=== PATIENT | male | born 1945 | race Caucasian/White ===

== ENCOUNTER 2022-05-17 07:34 | Emergency (ER) | payer OTHER, MEDICARE, SELFPAY ==
[2022-05-17 07:38] VITALS: BP 143/81; PULSE 98; RESP 15; TEMP 36.2; O2SAT 98; BMI 25.1
[2022-05-17] MEDS: DOCUSATE SODIUM/BENZOCAINE 5 ML ENEMA PR (09:07)
--- NOTE | 2022-05-17 09:44 | ED.ABDPAIN ---
HPI - Abdominal Pain General Date Seen: 05/17/22 Chief Complaint: Constipation Stated Complaint: constipation Time Seen by Provider: 05/17/22 08:38 Source: patient Mode of arrival: ambulatory Limitations: no limitations History of Present Illness HPI narrative: Patient is a 68-year-old gentleman, who presents here with his with a history of constipation for the last 5 days, he has been able have a bowel movement, but is passing gas, he has had no nausea vomiting but his appetite is diminished, his he says he does not think he should eat. These had no fevers or chills or no specific abdominal pain associated with this, he does have history constipation in the past, has tried some Dulcolax at home. He is getting a little bit of smearing on his underwear he says period but there is no blood or anything else. He does have a history of colon cancer in the past is due to have a repeat colonoscopy coming up here in the near future. [facility] is [facility]. Pertinent past history: constipation Onset (ago): day(s) (5) Pain Consistency: constant and intermittent Location: diffuse Severity: moderate Quality: cramping Migration to: no migration Exacerbating factors: eating Relieving factors: bowel movement Treatments prior to arrival: other (Dulcolax) Related Data Home Medications Medication Instructions Recorded Confirmed folic acid .ROUTE 05/17/22 methotrexate sodium (PF) .ROUTE 05/17/22 Allergies Allergy/AdvReac Type Severity Reaction Status Date / Time No Known Drug Allergies Allergy Verified 05/17/22 07:44 Review of Systems Status of ROS Reports: 10 or more systems reviewed and unremarkable except as noted in History and below PFSH PFSH Social History Smoking Status: Never smoker How often do you have a drink containing alcohol: never How often do you have six or more drinks on one occasion: Never AUDIT-C Alcohol total score: 0 Non-prescribed substance use: denies use Exam Narrative: Exam Narrative: Gentleman is thin in no apparent distress, there is no scleral icterus noted bilaterally, he is nontoxic, speaking to me normally, oropharynx normal neck is supple, no lymphadenopathy, chest shows good air entry bilaterally with no wheezing crackles noted heart sounds are normal, no clicks murmurs or gallops, S1-S2 is normal, his abdomen, is slightly distended, he has a rectus diastasis, but no significant hernia, bowel sounds are quiet but normal in all quadrants, there are no organomegaly, normal male genitalia is appreciated, rectal exam shows a lot of stool in the rectal vault, but no blood on the examining finger Const: Vital Signs, click to edit/add: Vital Signs - 24 hr 05/17/22 07:38 Temperature 97.2 F L Pulse Rate [Left P ulse Oximeter] 98 Respiratory Rate 15 Blood Pressure [Ri ght Upper Arm] 143/81 H Pulse Oximetry 98 Oxygen Delivery Me thod Room Air Documenting provider has reviewed patient's vital signs: yes Course Course Hospital Course: Patient did not have a lot returns with the Enemeez, 1 of the nurses went in and manually disimpacted him a little bit knee had some increased returns. He would like to go home at this point and try this as an outpatient which I think is reasonable use of MiraLax, along with the fluids rest, maybe a little docusate and then [facility] with [facility], for further evaluation are important. Return here if increasing abdominal pain fevers chills nausea vomiting or other issues. Vital Signs Vital signs: Initial Vital Signs Temperature 97.2 F L 05/17/22 07:38 Temperature Source Temporal Artery Scan 05/17/22 07:38 Pulse Rate 98 05/17/22 07:38 Pulse Rhythm 05/17/22 07:38 Pulse Strength 3+ Normal 05/17/22 07:38 Respiratory Rate 15 05/17/22 07:38 Blood Pressure 143/81 H 05/17/22 07:38 Blood Pressure Mean 101 05/17/22 07:38 Blood Pressure Position Sitting 05/17/22 07:38 Pulse Oximetry 98 05/17/22 07:38 Oxygen Delivery Method 05/17/22 07:38 Vital Signs Temperature 97.2 F L 05/17/22 07:38 Pulse Rate 98 05/17/22 07:38 Respiratory Rate 15 05/17/22 07:38 Blood Pressure 143/81 H 05/17/22 07:38 Pulse Oximetry 98 05/17/22 07:38 Oxygen Delivery Method 05/17/22 07:38 Temperature 97.2 F L 05/17/22 07:38 Pulse Rate 98 05/17/22 07:38 Respiratory Rate 15 05/17/22 07:38 Blood Pressure 143/81 H 05/17/22 07:38 Pulse Oximetry 98 05/17/22 07:38 Oxygen Delivery Method 05/17/22 07:38 MDM - Abdominal Pain MDM Narrative Medical decision making narrative: During this evaluation of this patient I considered multiple differential diagnosis is which included the life-threatening such as appendicitis, aortic aneurysm, mesenteric ischemia, bowel perforation, volvulus, and bowel obstruction. Other differential diagnosis is include but are not limited to cholecystitis, pancreatitis, hepatitis, gastritis, GERD, diverticulitis, peptic ulcer disease, pyelonephritis/UTI, renal colic/stone, testicular torsion as well as other acute scrotal processes, inflammatory bowel disease, as well as other etiologies I think this is constipation given the above findings, I think we will try see if he can have a bowel movement will use Enemeez, if this does fails to give him relief, then he may need some more manual type disimpaction. Medical Records Attestation: I reviewed the patient's medical records. Discharge Plan Discharge Clinical Impression: Acute constipation Patient Disposition: Home w/ Parent or Adult Condition: Improved Instructions: Constipation (ED), High Fiber Diet (ED), Fleet Enema (ED) Additional Instructions: Home, rest, MiraLax 1 cap full with 20 oz of water in the morning and then 1 cap full with 20 oz of water in the evening. Recommend also using docusate twice daily. Then please follow-up and discuss this with your [facility] provider. Return if increasing fevers chills or other issues. Her abdominal pain out of control. Prescriptions: No Action methotrexate sodium (PF) .ROUTE folic acid .ROUTE Follow Up/Referrals: Provider,Not a Local [Primary Care Provider] - Stand Alone Forms: [employer] Info Instructions
--- NOTE | 2022-05-17 10:43 | ED.NURSE ---
Digital extracted per MD request. Small amount of stool evacuated. Patient going to walk and try and get things going.
== END 2022-05-17 12:12 | disposition home or self-care (01) ==
PROVIDERS: Emergency Provider Family Medicine
DX: K59.00 Constipation, unspecified (principal); Z85.038 Personal history of other malignant neoplasm of large intestine
CPT/HCPCS: 99283; A9270